=== PATIENT | female | born 1995 | race Caucasian/White ===

== ENCOUNTER 2019-12-12 06:07 | Inpatient (IN) | payer OTHER, SELFPAY ==
[2019-12-12] VITALS (16 sets, daily range): BP systolic 114–145; BP diastolic 78–117; PULSE 93–138; RESP 16; TEMP 36.2–37.2; O2SAT 99; BMI 28.3
[2019-12-12 07:06] LABS: Basophils Absolute Auto 0.1 K/mm3 (0.0-0.1); Basophils Percent Auto 0.5 % (0.2-1.2); Eosinophils Absolute Auto 0.1 K/mm3 (0-0.3); Eosinophils Percent Auto 0.8 % (0-4.4); Hematocrit 38.9 % (37.0-47.0); Hemoglobin 12.6 g/dL (12.0-15.0); Immature Granulocyte Absolute 0.05 K/mm3 (0.00-0.031); Immature Granulocyte Percent A 0.5 % (0-0.5); Lymphocytes Absolute Auto 1.76 K/mm3 (0.9-3.2); Mean Corpuscular HGB Conc 32.4 g/dl (32-36); Mean Corpuscular Hemoglobin 27.3 pg (26-34); Mean Corpuscular Volume 84.4 fl (80-100); Mean Platelet Volume 12.2 fl (7.4-10.4); Monocytes Absolute Auto 0.8 K/mm3 (0.1-0.6); Monocytes Percent Auto 7.2 % (2.6-8.5); Neutrophils Absolute Auto 8.3 K/mm3 (1.3-6.7); Platelet Count Result 187 k/mm3 (150-375); Red Blood Count 4.61 M/mm3 (4.2-5.4)
[2019-12-12] MEDS: OXYTOCIN 30 UNITS/NS 500 ML 30 UNITS/500 ML BAG 125 UNITS IV CONT (08:20)
--- NOTE | 2019-12-12 08:21 | WPDOBADMIT ---
Obstetrics - Admit Note Admission Note: record reviewed. Additions to the history and/or subsequent changes in the physical findings follow. 24 y/o G1 at 37 6/7 weeks here with contractions beginning 0300. Cervix was 8 cm on arrival and labor was diagnosed. GBS neg. AVSS NST reactive TOCO: contractions every 2-3 min ABD soft, nontender, gravid, vertex EXT nontender Cervix C/+2 A: Labor at term. P: Begin pushing. Anticiapte . .
--- NOTE | 2019-12-12 08:22 | P.PCNOB_ITS ---
OB - Delivery Note Procedure Delivery date: 12/12/19 Procedure: Delivery monitor: external FHT and external uterine Route of delivery: Episiotomy description: Midline Laceration description: Labial (bilateral) Delivery repair: vicryl (3-0) Specimen: Yes (cord blood) Estimated blood loss (mL): 420 Anesthesia type: Local (1% lidocaine) Disposition: PACU Complications: None Narrative: 24 y/o primigravida at 37 6/7 weeks gestation who presented to the hospital complaining of contractions since 0300. Cervix was dilated to 8 cm on admission, progressed rapidly to complete dilation. Amniotomy was performed with return of clear fluid. 1% lidocaine was administered to the perineum and a midline episiotomy was made. She pushed with good effort and delivered the inf ant's head to the perineum, followed by the body. The nose and mouth were bulb suctioned. After a delay, the cord was clamped and cut. The was handed off the field. Cord blood was collected. The placenta delivered spontaneously and was grossly normal in appearance. The usual 3 vessel cord was noted. The episiotomy and bilateral labial lacerations were infiltrated with additional 1% lidocaine (total of 22mL), and were reapproximated using 3 0 Vicryl in the usual layered fashion. Excellent hemostasis resulted as did excellent reapproximation of the normal anatomy. Needle and instrument counts were correct. The patient was taken to recovery room in stable condition. The infant went to the nursery in stable condition. I was present and scrubbed for the entire delivery. [place] Baby Date of : 12/12/19 Time of : 07:42 Weeks of gestation at delivery: 37 gender: Female Weight (pounds): 7 Weight (ounces): 1 presentation: vertex position: Left Occiput Anterior Placenta delivery description: Spontaneous and Normal Configuration cord vessel description: 3 Vessels score one minute: 8 score five minutes: 8
--- NOTE | 2019-12-12 08:28 | P.DS_ITS ---
DS: Diagnosis Discharge Diagnosis (1) (normal spontaneous vaginal delivery): Code(s): O80 - Encounter for full-term uncomplicated delivery Status: Acute OB - DS: Summary OB Procedures : None OB Procedures Intrapartum: Spontaneous Vag Delivery OB Procedures: : None Time Spent with Patient Time attestation: Total time spent providing and/or coordinating discharge services: DS: Data Data Completed and Pending Labs on day of discharge: Labs from last 24 hours 12/12/19 12/12/19 06:31 06:31 WBC 11.0 H RBC 4.61 Hgb 12.6 Hct 38.9 MCV 84.4 MCH 27.3 MCHC 32.4 RDW 13.0 Plt Count 187 MPV 12.2 H Immature Gran % (Auto) 0.5 Neut % (Auto) 75.0 H Lymph % (Auto) 16.0 L [place] % (Auto) 7.2 Eos % (Auto) 0.8 Baso % (Auto) 0.5 Lymph # (Auto) 1.76 [place] # (Auto) 0.8 H Eos # (Auto) 0.1 Baso # (Auto) 0.1 Abs Immat Gran (auto) 0.05 H Absolute Neuts (auto) 8.3 H Absolute Nucleated RBC 0.0 Nucleated RBC % 0.0 RPR Pending Discharge Plan Discharge Attending physician on discharge: Mauro Spaulding Discharging Clinician: Mauro Spaulding Patient Disposition: Home, Self-Care Activity: pelvic rest Diet: regular Discharge Instructions: Call or return if temperature above 100.4? F, increased abdominal pain, increased vaginal bleeding or any new problems. Stand Alone Forms: General Discharge Information Follow-up/Referrals: Mauro Spaulding MD [Physician] - (6 weeks) Discharge Medications: New ibuprofen 600 mg tablet 600 mg PO Q6H PRN (Reason: cramps) Qty: 30 RF: 0 venlafaxine [Effexor XR] 150 mg capsule,extended release 24hr 150 mg PO QAM Qty: 30 RF: 2 No Action venlafaxine [Effexor XR] 75 mg Capsule,Extended Release 24hr 75 mg PO DAILY RF: 0 Zyrtec 10 mg Capsule 10 mg PO DAILY RF: 0 PNV cmb#95-ferrous fumarate-FA [] 28 mg iron- 800 mcg Tablet 1 tablet PO DAILY RF: 0 Date of admission: 12/12/19 06:07 Primary Care Provider: Yony Oswald Admitting Provider: Mauro Spaulding Attending physician on admission: Mauro Spaulding
[2019-12-12] MEDS: WITCH HAZEL 40 PADS 1 PAD TOPICAL (08:46)
[2019-12-12] MEDS: BENZOCAINE 20% AER SPR (*SP) 56 GM CAN 1 SPRAY TOPICAL (08:46)
[2019-12-12] MEDS: IBUPROFEN 600 MG TABLET PO ×2 (08:46→16:59)
--- NOTE | 2019-12-12 11:34 | PC.NURSE ---
1100 Pt up to bathroom with assistance. Annabelle care provided. to Nursery to visit infant per wheelchair. 1115 Pt moved to PP unit. Report given to Lien.
[2019-12-12] MEDS: ACETAMINOPHEN 325 MG TABLET 650 MG PO (11:39)
--- NOTE | 2019-12-12 13:30 | PC.NURSE ---
Breast pump provided due to in Level II status. Instructions given on breast pump care and usage, pumping schedule, nipple care, and collection and storage of breast milk. Encouraged [id number], breast massage and manual expression to stimulate supply. Pumping log provided and reviewed. Assessed patient for correct flange size, placement and draw. Patient verbalizes and demonstrates understanding of instructions.
[2019-12-12] MEDS: DOCUSATE SODIUM 100 MG CAPSULE PO (16:59)
[2019-12-12] MEDS: LANOLIN (LANSINOH) 7.5 GM CREAM 1 APPLIC TOPICAL (17:00)
[2019-12-12] MEDS: VENLAFAXINE HCL XR 75 MG CAP.ER.24H PO (20:00)
[2019-12-13] MEDS: IBUPROFEN 600 MG TABLET PO ×2 (00:04→07:56)
[2019-12-13 06:13] LABS: Hematocrit 32.5 % (37.0-47.0); Hemoglobin 10.3 g/dL (12.0-15.0)
[2019-12-13 07:30] VITALS: BP 122/75; PULSE 95; RESP 18; TEMP 36.6; O2SAT 100
[2019-12-13 07:35] LABS: Rapid Plasma Reagin Non-Reactive (NonReactive)
--- NOTE | 2019-12-13 09:17 | PM.OBPNVD ---
OB - PN: Subj Subjective Date/time seen: 12/13/19 09:17 Narrative: Pain OK. Would like to go home. OB - PN: Obj Data Labs CBC & Chem 7: 12/13/19 04:50 Labs: Laboratory Results - last 24 hr 12/12/19 12/13/19 06:31 04:50 Hgb 10.3 L Hct 32.5 L RPR Non-reactive OB - PN A/P Plan Comments: A: PPD#1, doing well. P: Home to f/u 6 weeks. Exam Psych: Other: AVSS ABD soft, nontender, fundus firm EXT nontender
--- NOTE | 2019-12-13 09:30 | PC.NURSE ---
Mother continues to pump without difficulties or discomfort. No further questions at this time.
--- NOTE | 2019-12-13 11:05 | PC.NURSE ---
Patient instructed to view the discharge video Mother & Baby Care, The First Two Weeks online. Patient was given the opportunity and encouraged to ask questions. Patient verbalized understanding of information shared and has been given the mother/baby guide for home reference.
== END 2019-12-13 12:43 | disposition home or self-care (01) | DRG 807 ==
LOC: ANHLDR 08:29 → ANHOB2 11:15
PROVIDERS: Admitting Provider Obstetrics & Gynecology; PCP Emergency Medicine; Visit Provider Obstetrics & Gynecology
DX: O70.0 First degree perineal laceration during delivery (principal); Z37.0 Single live birth; Z3A.37 37 weeks gestation of pregnancy; Z23 Encounter for immunization
CPT/HCPCS: 36415; 85014; 85018; 85025; 86592; 86850; 86900; 86901; A9270; J0290; J2590

== ENCOUNTER 2023-01-05 10:58 | Outpatient (RCR) | payer BC, SELFPAY ==
[2023-01-05 11:44] VITALS: BMI 27.6
== END 2023-01-13 11:47 | disposition home or self-care (01) ==
LOC: ANHDMC 10:58
PROVIDERS: PCP Emergency Medicine; Visit Provider Obstetrics & Gynecology
DX: O24.319 Unspecified pre-existing diabetes mellitus in pregnancy, unspecified trimester (principal); Z3A.00 Weeks of gestation of pregnancy not specified; Z71.3 Dietary counseling and surveillance
CPT/HCPCS: 97802

== ENCOUNTER 2023-02-08 08:30 | Inpatient (IN) | payer BC, SELFPAY ==
[2023-02-08] VITALS (72 sets, daily range): BP systolic 94–143; BP diastolic 46–92; PULSE 89–147; RESP 18; TEMP 36.9–37.6; O2SAT 97–100; BMI 28.8
[2023-02-08 09:03] LABS: Basophils Percent Auto 0.4 % (0.2-1.2); Eosinophils Absolute Auto 0.1 K/mm3 (0-0.3); Eosinophils Percent Auto 0.6 % (0-4.4); Hematocrit 34.2 % (37.0-47.0); Immature Granulocyte Absolute 0.05 K/mm3 (0.00-0.031); Immature Granulocyte Percent A 0.6 % (0-0.5); Lymphocytes Absolute Auto 1.53 K/mm3 (0.9-3.2); Mean Corpuscular HGB Conc 32.2 g/dl (32-36); Mean Corpuscular Hemoglobin 25.7 pg (26-34); Mean Corpuscular Volume 79.9 fl (80-100); Mean Platelet Volume 10.7 fl (7.4-10.4); Monocytes Absolute Auto 0.5 K/mm3 (0.1-0.6); Monocytes Percent Auto 6.5 % (2.6-8.5); Neutrophils Absolute Auto 5.9 K/mm3 (1.3-6.7); Neutrophils Percent Auto 72.9 % (45.5-73.1); Platelet Count Result 176 k/mm3 (150-375); Red Blood Count 4.28 M/mm3 (4.2-5.4); Red Cell Distribution Width 14.1 % (11.5-14.5); White Blood Count 8.1 K/mm3 (4.5-10.0)
[2023-02-08] MEDS: LACTATED RINGERS 1,000 ML 999 ML IV CONT (09:04)
--- NOTE | 2023-02-08 09:12 | LDADM ---
This patient, Jaylin Chávez, was admitted to Labor/Delivery/Recovery 106 on 02/08/23 at 08:30. Plans for labor, pain management and were discussed with patient. Patient/family oriented to hospital policies and general routines including ID bracelet, bed and alarms, visiting hours, pain management, procedures, bathroom and other care routines, personal items, smoking policy, room service/diet and guest tray routines, infant security routines, and visiting hours. Patient/Family are encouraged to report perceived risks to care and to ask questions if they do not understand what they are told or what they should do. See OBIX for further documentation.
--- NOTE | 2023-02-08 10:18 | WPDANESEPPF ---
Anes - Initial Pre Proc Eval Procedure: labor epidural Date/Time: 02/08/23 10:18 Surgeon: Mauro Spaulding MD Pre Op Diagnosis: labor pain Pre Op Diagnosis: contractions Patient Data Age: 27 Gender: F Height: 1.7 m Weight: 83.4 kg Last Vital Signs Pulse 120 H 02/08/23 10:17 BP 131/79 02/08/23 10:17 Pulse Ox 97 02/08/23 10:14 Allergies Allergy/AdvReac Type Severity Reaction Status Date / Time No Known Allergies Allergy Verified 01/26/23 13:37 Home Medications Medication Instructions Recorded Confirmed Type cetirizine 10 mg capsule (Zyrtec) 10 mg PO DAILY 12/02/19 12/02/19 History vit no.95-ferrous 1 tablet PO DAILY 12/02/19 12/02/19 History fumarate 28 mg-folic acid 800 mcg tablet () ibuprofen 600 mg tablet 600 mg PO Q6H PRN cramps #30 tabs 12/13/19 Rx venlafaxine 150 mg 150 mg PO QAM #30 caps 12/13/19 Rx capsule,extended release 24 hr (Effexor XR) Laboratory Tests 02/08/23 08:58 WBC 8.1 K/mm3 (4.5-10.0) RBC 4.28 M/mm3 (4.2-5.4) Hgb 11.0 L g/dL (12.0-15.0) Hct 34.2 L % (37.0-47.0) MCV 79.9 L fl (80-100) MCH 25.7 L pg (26-34) MCHC 32.2 g/dl (32-36) RDW 14.1 % (11.5-14.5) Plt Count 176 k/mm3 (150-375) MPV 10.7 H fl (7.4-10.4) Immature Gran % (Auto) 0.6 H % (0-0.5) Neut % (Auto) 72.9 % (45.5-73.1) Lymph % (Auto) 19.0 % (18.3-44.2) [place] % (Auto) 6.5 % (2.6-8.5) Eos % (Auto) 0.6 % (0-4.4) Baso % (Auto) 0.4 % (0.2-1.2) Lymph # (Auto) 1.53 K/mm3 (0.9-3.2) [place] # (Auto) 0.5 K/mm3 (0.1-0.6) Eos # (Auto) 0.1 K/mm3 (0-0.3) Baso # (Auto) 0.0 K/mm3 (0.0-0.1) Abs Immat Gran (auto) 0.05 H K/mm3 (0.00-0.031) Absolute Neuts (auto) 5.9 K/mm3 (1.3-6.7) Absolute Nucleated RBC 0.0 K/mm3 (0.0-0.012) Nucleated RBC % 0.0 % (0.0-0.2) RPR Pending Blood Type A Positive Antibody Screen Negative Patient hx anesthesia problems: none Family hx anesthesia problems: none Results Review: All pre-operative results and documents have been reviewed as part of the pre-operative evaluation. [facility] Past Medical History Medical History (Updated 02/08/23 @ 10:18 by Vladimir Eugene DO) GDM (gestational diabetes mellitus) Family History Family History (Updated 01/26/23 @ 13:48 by Linda Bar RN) Mother Hypothyroidism Father Hyperlipemia Hypertension Bipolar 1 disorder Grandparent Throat cancer Breast cancer in female Cirrhosis Diabetes type 2, controlled Cerebrovascular accident Sibling Asthma Social History Social History Smoking status: Never smoker Substance use: never Lack of Transportation: No Lack of Food: Never True Current Housing: I Have Housing Concerned About Future Housing: No Difficulty Paying Gas/Electric Bills: No Difficulty Paying for Meds: No Currently Unemployed: No Education: Master's Degree or Higher Difficulty w/ Childcare or Family Care: No Gender identity (if verbalized by the patient): Female Spiritual care concerns: No Anes - Eval Final PreProcedure Day of Procedure 02/08/23 10:18 Patient weight: overweight ASA classification: III Anesthetic plan: proceed Anesthesia type and monitoring: regional epidural and standard monitoring Results Review: All pre-operative results and documents have been reviewed as part of the pre-operative evaluation. Informed Consent: The patient's anesthetic plan and its attendant risks and benefits were discussed with the patient/family/POA. Questions were solicited and answers provided to the satisfaction of the patient/family/POA.
--- NOTE | 2023-02-08 10:52 | PM.IMHP ---
H&P: HPI History of Present Illness Date/Time: 02/08/23 10:52 Chief Complaint: Labor Narrative: 27-year-old multiparous patient at 37 weeks gestation with a due date of 02/26 in active labor. has been uncomplicated with negative group B strep PMFSH Past Medical History Medical History GDM (gestational diabetes mellitus) Family History Family History Mother Hypothyroidism Father Hyperlipemia Hypertension Bipolar 1 disorder Grandparent Throat cancer Breast cancer in female Cirrhosis Diabetes type 2, controlled Cerebrovascular accident Sibling Asthma Social History Social History Smoking status: Never smoker Substance use: never Lack of Transportation: No Lack of Food: Never True Current Housing: I Have Housing Concerned About Future Housing: No Difficulty Paying Gas/Electric Bills: No Difficulty Paying for Meds: No Currently Unemployed: No Education: Master's Degree or Higher Difficulty w/ Childcare or Family Care: No Gender identity (if verbalized by the patient): Female Spiritual care concerns: No Meds Home Medications and Allergies Home Medications Medication Instructions Recorded Confirmed Type cetirizine 10 mg capsule (Zyrtec) 10 mg PO DAILY 12/02/19 12/02/19 History vit no.95-ferrous 1 tablet PO DAILY 12/02/19 12/02/19 History fumarate 28 mg-folic acid 800 mcg tablet () ibuprofen 600 mg tablet 600 mg PO Q6H PRN cramps #30 tabs 12/13/19 Rx venlafaxine 150 mg 150 mg PO QAM #30 caps 12/13/19 Rx capsule,extended release 24 hr (Effexor XR) Allergies Allergy/AdvReac Type Severity Reaction Status Date / Time No Known Allergies Allergy Verified 01/26/23 13:37 Vital Signs Vital Signs - 24 hr 02/08/23 09:07 02/08/23 09:15 02/08/23 09:30 Temperature Pulse Rate 122 H 118 H 120 H Blood Pressure 127/81 129/84 135/89 Pulse Oximetry 02/08/23 09:59 02/08/23 10:00 02/08/23 10:04 Temperature Pulse Rate 131 H Blood Pressure 143/92 H Pulse Oximetry 99 99 02/08/23 10:06 02/08/23 10:07 02/08/23 10:09 Temperature Pulse Rate 126 H 128 H Blood Pressure 137/89 137/86 Pulse Oximetry 97 02/08/23 10:10 02/08/23 10:12 02/08/23 10:14 Temperature Pulse Rate 124 H 141 H Blood Pressure 137/82 131/81 Pulse Oximetry 97 02/08/23 10:15 02/08/23 10:17 02/08/23 10:19 Temperature Pulse Rate 126 H 120 H Blood Pressure 133/77 131/79 Pulse Oximetry 97 02/08/23 10:20 02/08/23 10:22 02/08/23 10:24 Temperature Pulse Rate 115 H 133 H Blood Pressure 132/85 128/81 Pulse Oximetry 98 02/08/23 10:25 02/08/23 10:27 02/08/23 10:29 Temperature Pulse Rate 114 H 128 H Blood Pressure 121/84 125/77 Pulse Oximetry 99 02/08/23 10:30 02/08/23 10:32 02/08/23 10:34 Temperature 98.8 F Pulse Rate 114 H 121 H Blood Pressure 125/82 125/90 Pulse Oximetry 99 02/08/23 10:35 02/08/23 10:37 02/08/23 10:39 Temperature Pulse Rate 123 H 107 H Blood Pressure 128/76 135/77 Pulse Oximetry 100 02/08/23 10:40 02/08/23 10:42 02/08/23 10:44 Temperature Pulse Rate 118 H 116 H Blood Pressure 129/84 132/81 Pulse Oximetry 99 02/08/23 10:45 02/08/23 10:49 Temperature Pulse Rate 115 H Blood Pressure 128/81 Pulse Oximetry 100 Exam Const: General: cooperative, healthy appearing and comfortable Nutritional Appearance: average body habitus Orientation/consciousness: oriented to person, oriented to place and oriented to time HENMT: Head: normal to inspection Resp: Effort & Inspection: normal respiratory effort GI: Inspection: normal to inspection ( gravid soft uterus) H&P: Results Labs Labs: Short CBC 02/08/23 Range/Units 08:58 WBC 8.1 (4.5-10
[2023-02-08 11:48] LABS: Rapid Plasma Reagin Non-Reactive (NonReactive)
[2023-02-08] MEDS: LACTATED RINGERS 500 ML 999 ML IV CONT (12:47)
[2023-02-08] MEDS: OXYTOCIN 30 UNITS/NS 500 ML 30 UNITS/500 ML BAG 999 UNITS IV CONT (13:02)
--- NOTE | 2023-02-08 13:11 | PM.OBPRVD ---
OB - Delivery Note Procedure Delivery date: 02/08/23 Events: Gestational Diabetes Induction method: None Delivery augmentation: Rupture of Membranes Delivery monitor: External FHT Route of delivery: Episiotomy description: None Laceration Description: Perineal - 1st Degree Delivery repair: vicryl Quantitative Blood Loss (ml): 160 Anesthesia type: Epidural Disposition: Floor Baby Date of : 02/08/23 Time of : 12:58 Weeks of gestation at delivery: 37 Infant gender: Female presentation: vertex position: Right Occiput Anterior Placenta delivery description: Spontaneous Cord Vessel Description: 3 Vessels, Nuchal Cord and Loose
[2023-02-08 13:26] LABS: HIV 1/2 Ab P24 Ag Result Negative (Negative)
[2023-02-08] MEDS: OXYTOCIN 30 UNITS/NS 500 ML 30 UNITS/500 ML BAG 125 UNITS IV CONT (13:28)
[2023-02-08] MEDS: IBUPROFEN 600 MG TABLET PO ×2 (16:28→23:23)
[2023-02-08] MEDS: BENZOCAINE 20% AER SPR (*SP) 56 GM CAN 1 SPRAY TOPICAL (16:29)
[2023-02-08] MEDS: WITCH HAZEL 40 PADS 1 PAD TOPICAL (16:29)
--- NOTE | 2023-02-08 18:10 | PC.NURSE ---
Patient transferred to post room #290 per wheelchair from labor and delivery. Support person present. Oriented to unit, room, information board, rooming in, admission packet and security measures. Patient verbalizes understanding.
[2023-02-08] MEDS: VENLAFAXINE HCL XR 75 MG CAP.ER.24H PO (23:23)
[2023-02-08] MEDS: LORATADINE 10 MG TABLET PO (23:23)
[2023-02-09 00:20] VITALS: BP 108/68; PULSE 93; RESP 16; TEMP 36.7
[2023-02-09] MEDS: IBUPROFEN 600 MG TABLET PO (05:10)
[2023-02-09 05:20] LABS: Hematocrit 32.8 % (37.0-47.0); Hemoglobin 10.4 g/dL (12.0-15.0)
[2023-02-09 07:30] VITALS: BP 110/69; PULSE 96; RESP 16; TEMP 36.5; O2SAT 100
--- NOTE | 2023-02-09 07:50 | WPDANLDPN2 ---
Anes-Prog Note L&D Date/Time: 02/09/23 07:50 Neuro status: Neuro function grossly intact. Vital Signs: Last Vital Signs Temp 36.5 C 02/09/23 07:30 Pulse 96 02/09/23 07:30 Resp 16 02/09/23 07:30 BP 110/69 02/09/23 07:30 Pulse Ox 100 02/09/23 07:30 O2 Del Method Room Air 02/08/23 18:30 Pain score (VAS): 0 I/O: Intake & Output 02/08/23 02/08/23 02/09/23 15:59 23:59 07:59 Intake Total 1000 240 Output Total 843 Balance 157 240 Patient feedback: Patient satisfied with anesthetic care.
--- NOTE | 2023-02-09 08:42 | PM.OBDSVD ---
DS: Admitting Diagnosis Discharge Date 02/09/23 Admitting Diagnosis IUP at 37 weeks Labor Gestational diabetes DS: Discharge Diagnosis Discharge Diagnosis (1) (normal spontaneous vaginal delivery): Code(s): O80 - Encounter for full-term uncomplicated delivery Status: Acute (2) GDM (gestational diabetes mellitus): Code(s): O24.419 - Gestational diabetes mellitus in , unspecified control Status: Acute OB - DS: Summary OB Procedures : None OB Procedures Intrapartum: Spontaneous Vag Delivery OB Procedures: : None Time Spent with Patient Time attestation: Total time spent providing and/or coordinating discharge services: DS: Data Data Completed and Pending Labs on day of discharge: Labs from last 24 hours 02/09/23 02/08/23 02/08/23 05:14 12:23 08:58 WBC 8.1 RBC 4.28 Hgb 10.4 L 11.0 L Hct 32.8 L 34.2 L MCV 79.9 L MCH 25.7 L MCHC 32.2 RDW 14.1 Plt Count 176 MPV 10.7 H Immature Gran % (Auto) 0.6 H Neut % (Auto) 72.9 Lymph % (Auto) 19.0 [place] % (Auto) 6.5 Eos % (Auto) 0.6 Baso % (Auto) 0.4 Lymph # (Auto) 1.53 [place] # (Auto) 0.5 Eos # (Auto) 0.1 Baso # (Auto) 0.0 Abs Immat Gran (auto) 0.05 H Absolute Neuts (auto) 5.9 Absolute Nucleated RBC 0.0 Nucleated RBC % 0.0 RPR Non-reactive HIV 1&2 Ab/P24 Ag 4thGn Negative Blood Type A Positive Antibody Screen Negative Discharge Plan Discharge Attending physician on discharge: Mauro Spaulding Discharging Clinician: Mauro Spaulding Patient Disposition: Home, Self-Care Activity: pelvic rest Diet: regular Discharge Instructions: Education: Mom and Baby Guide Given to: Mother Follow-Up: Call your delivering provider's office for an appointment to be seen in: Call office for appointment Mom and baby [facility] come [facility] for the follow-up appointment. Appointment Date/Time: February 11, 2023 at 10:00 am What to expect at your follow-up visit: Physical Assessment Call [phone] if you are unable to keep your appointment time. BREAST CARE: * Wear a snug supportive bra. * For engorgement discomfort: Breast Feeding/pumping: * Apply warm moist washcloths * Express milk as needed to relieve engorgement * Wear loose clothing Bottle Feeding: * May apply ice packs * For sore nipples: * Identify correct latch-on/flange size * Apply warm moist washcloths before and after nursing * Air dry nipples after nursing * May apply [place] cream to nipples EPISIOTOMY/PERINEAL CARE: * Until bleeding stops, use your hallie bottle after urinating * Change your pad frequently throughout the day * You may take sitz baths several times a day (fill your bathtub with warm water and soak for 20 minutes.) Do NOT bathe in the water * No tub baths until seen by your physician - You may shower ACTIVITY: * Rest as much as possible. * Do not exercise or lift anything heavier than your baby (such as laundry or other children.) * Avoid stairs or driving as much as possible. * Do not put anything into the vagina. No douching, tampons, or sexual activity until seen by physician. NOTIFY PHYSICIAN IF YOU HAVE ANY QUESTIONS OR IF ANY OF THE FOLLOWING SYMPTOMS OCCUR: * If your episiotomy becomes red, swollen, or more painful than what you have experienced in the hospital. * If your vaginal bleeding becomes foul smelling. * If your vaginal bleeding becomes more heavy than a period or if your bleeding changes from pink to bright red. However, you may pass an occasional walnut-sized clot once or twice for the first week . * If you experience a sharp, shooting pain in you calves. * If you discover a hard, reddened area on your breast or if you experience flu-like symptoms. DIET: * Eat regular, w
[2023-02-09] MEDS: MULTIVIT/MIN/PREN/FOL AC/IRON TABLET 1 TAB PO (09:32)
[2023-02-09] MEDS: DOCUSATE SODIUM 100 MG CAPSULE PO (09:32)
[2023-02-09] MEDS: WITCH HAZEL 40 PADS 1 PAD TOPICAL (09:35)
--- NOTE | 2023-02-09 10:35 | PC.NURSE ---
[phone] Introductions were made, then consulted with patient to assess needs related to milk production. Mother led the conversation with her?plans to feed?her and the?experience so far. Mother is consistently pumping for her supply related to separation from her infant. Instructions given on cleaning, care, usage, that there should be no pain, pumping schedule for milk production, collection, and storage of human milk. RN offered to assess for correct placement and flange size. Mother is encouraged to pump for comfort and nipple stretching/stimulation for adequate milk production every 3 hours (8-12 times in 24 hours) 1-2 times at night. Resources provided for inpatient and outpatient services with the mom/baby guide and name written on the white board. Mother voiced understanding of information and will call if there is a request for assistance. Reported to the primary RN.
== END 2023-02-09 09:50 | disposition home or self-care (01) | DRG 807 ==
LOC: ANHLDR 10:14 → ANHOB2 18:43
PROVIDERS: Admitting Provider Obstetrics & Gynecology; Visit Provider Obstetrics & Gynecology
DX: O24.420 Gestational diabetes mellitus in childbirth, diet controlled (principal); Z37.0 Single live birth; O70.0 First degree perineal laceration during delivery; O77.0 Labor and delivery complicated by meconium in amniotic fluid; O69.81X0 Labor and delivery complicated by cord around neck, without compression, not applicable or unspecified; Z3A.37 37 weeks gestation of pregnancy
CPT/HCPCS: 36415; 85014; 85018; 85025; 86592; 86703; 86850; 86900; 86901; A9270; G0432; J2590; J2795; J7120

== ENCOUNTER 2023-02-10 09:00 | Outpatient (RCR) | payer BC, SELFPAY ==
[2023-01-06 10:10] VITALS: BP 120/73; PULSE 95
[2023-01-13 11:58] VITALS: BP 115/79; PULSE 117
[2023-01-20 11:00] VITALS: BP 119/78; PULSE 116
[2023-01-26 16:27] VITALS: BP 123/78; PULSE 116
[2023-02-03 12:46] VITALS: BP 125/83; PULSE 112
== END 2023-02-12 17:39 | disposition home or self-care (01) ==
LOC: ANHOBOP 09:00
PROVIDERS: Visit Provider Obstetrics & Gynecology
DX: O24.419 Gestational diabetes mellitus in pregnancy, unspecified control (principal); Z3A.32 32 weeks gestation of pregnancy; Z3A.33 33 weeks gestation of pregnancy; Z3A.34 34 weeks gestation of pregnancy; Z3A.35 35 weeks gestation of pregnancy; Z3A.36 36 weeks gestation of pregnancy
CPT/HCPCS: 59025